=== PATIENT | male | born 1960 | race Caucasian/White ===

== ENCOUNTER 2024-11-10 15:06 | Emergency (ER) | payer OTHER, SELFPAY ==
--- OUTSIDE RECORDS SUMMARY | 2018-03-02 03:01 | XMS_ITS | Continuity of Care Document ---
Author Organization [facility] Address [address] [address] [place] [address] Phone Care Team Providers Care Sourcing Assistant Name Role Phone Unavailable Unavailable Unavailable Allergies, Adverse Reactions, Alerts Substance Reaction Status Criticality No Known Allergies Active No Inform ation Medications Medication Instructions Dosage Effective Dates (start - stop) Status Comments Zoloft 100 mg tablet take 1.5 Tablet by oral route every day 150 MG - Active ibuprofen 600 mg tablet take 1 tablet by oral route every day with food 600 MG - Active TYLENOL (unknown strength) take 1 tablet by oral route every 6 hours as needed Not Available - Active Nexium 40 mg capsule,delayed release take 1 capsule (40MG) by oral route 1 - 2 times every day 40 MG - Active MiralaxBisacodylMagCit Colon Prep Use as directed - No Longer Active Zoloft 50 mg tablet take 1 tablet (50MG) by ORAL route every day 50 MG - No Longer Active Procedures Procedure Date Colonoscopy Flex; W/bx 1/mx Level Iv-surg Path Gross/micro 19 Office Cons New/estab Mod Offic/outpt E&m Estab Low-mod 2 G8447 Colonoscopy Flex; W/contrl Ble 12 Colonoscopy Flex; W/bx 1/mx Level Iv-surg Path Gross/micro 12 Offic/outpt E&m New Mod-hi Routine Serum Collection G8447 Bld Ct; Hgb C-reactive Prot Advance Directives Directive Yes / No Effective Date File Name No Information Encounters Encounter Description Practice Location Reason(s) For Visit Diagnoses Date Provider Providers Copied on Encounter [facility], [address] [address], [place], [place], [id number], [place] tel:[phone] [facility] No Information 9 No Information Referring Provider: Betty Arthur MD, [address] [facility] [address], [place], [address] . tel:[phone] [facility], [address] [address], [place], [place], [address], [place] tel:[phone] [facility] Internal hemorrhoidsDia rrhea, unspecifiedMel enaOther hemorrhoids 9 Sandhya Hernández. [address] [facility], [address], [place], [place], [address], [place]. tel:[phone] Referring Provider: Referral Self, USE FOR SELF REFERRALS. Office Cons New/estab Mod [facility], [address] [address], [place], [place], [address], [place] tel:[phone] [facility] GI Symptoms or Concerns (chief complaint) Chronic diarrheaRectal bleeding 8 Jeyson Cain. [address] [facility], [place], [place], [address], [place]. tel:[phone] Referring Provider: [place], [address] [address] [place], [address]. tel:[phone] Offic/outpt E&m Estab Low-mod [facility], [address] [address], [place], [place], [address], [place] tel:[phone] [facility] Colonoscopy f/u (chief complaint) Rectal Bleed/BRBPR 2 Luis Waller. [address] [facility], [facility] [address], [place], [address], [place]. tel:[phone] Referring Provider: Referral Self, USE FOR SELF REFERRALS. [facility], [address] [address], [place], [place], [address], tel:[phone] [facility] AVM W/o BleedAVM W/bleedAnal FissureHemorrh oids NosAVM W/bleedDiarrhe aHemorrhoids NosAnal Fissure 2 Yoandy Handley. [address] [facility], [facility] [address], [place], [place], [address], [place]. tel:[phone] Referring Provider: Referral Self, USE FOR SELF REFERRALS. Offic/outpt E&m [facility], [address] [address], [place], [place], [address], tel:[phone] [facility] Diarrhea (chief complaint)Re ctal bleeding (chief complaint) DiarrheaRectal Bleed/BRBPR 2 Luis Waller. [address] [facility], [facility] [address], [place], [address], [place]. tel:[phone] Referring Provider: Referral Self, USE FOR SELF REFERRALS. Family History Family Member Type Diagnosis Age At Onset First degree family history Problem (finding) No history of Cancer, colon First degree family history Problem (finding) No history of Ulcerative Colitis First degree family history Problem (finding) cancer liver First degree family history Problem (finding) No Family history of No history of Colon Polyps First degree family history Problem (finding) No history of Crohn's Mother Problem (finding) Thyroid disorder First degree family history Problem (finding) Cholelithasis Immunizations Vaccine Date Status Comments Influenza, injectable, quadr ivalent, preservative free, 3 yrs or older administered Source : Other Provider Payers Payer name Insurance type Covered green party ID Authoriza tion(s) [employer] Of [facility] [id number] Social History Type Description Quantity Date Captured Comments Sex Male Smoking Status No Information Chief Complaint And Reason For Visit No Information Reason For Referral Reason For Referral No Information History Of Present Illness Encounter Date Complaint History Of Prese nt Illness GI Symptoms or Concerns I had th e pleasure of meeting Mr. Adam Fu, a 57-year-old gentleman, seen in consultation at the request of Dr. Consuelo Alcantara for bloody diarrhea.Adam has been dealing with bloody diarrhea for over 10 years. 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 It appears that he was referred to Colorectal Surgery and I have no notes from those encounters, but Mr. Fu says that nothing was done when he saw them. He also gives a vague history of being seen at the [facility] for his symptoms and he says that they could not figure out the problem.In the past, he had tests for C. diff which were normal, CRP, which was normal, tTG, which was normal, and stool culture which was normal.More recently in August 2017, his hemoglobin was 12.9 with an MCV of 81, normal PLT and WBC count, normal c Functional Status Date Functional Assessmen t No Information Instructions Date Instruction Additional Infor wade 1. Colonoscopy with views of the terminal ileum and random biopsies throughout the colon.2. Follow up with me in 1 month.Thank you so much for involving me in the care of Mr. Fu. Related to Chronic diarrhea Assessments Type Assessment Date No Information Patient Care Teams Name Effective Dates (start - stop) Status Members No Information
[2024-11-10] VITALS (24 sets, daily range): BP systolic 76–117; BP diastolic 56–80; PULSE 65–80; RESP 16–28; TEMP 36.1; O2SAT 91–100
--- NOTE | 2024-11-10 15:27 | ED.WOUNDLAC ---
HPI - Wound/Laceration General Chief Complaint: Laceration/Wound Stated Complaint: Cut L thumb with chainsaw Time Seen by Provider: 11/10/24 15:19 History of Present Illness HPI narrative: This 64-year-old male comes in with an injury to his left thumb. He was using a chain saw and cut the dorsal aspect of his thumb. He comes in with his some wrapped up and complaining of lots of pain. His speaks Luxembourgish and translates for him. His tetanus status is up-to-date. Related Data Home Medications ?Medication ?Instructions ?Recorded ?Confirmed gabapentin 300 mg capsule 300 mg PO 3XD 11/10/24 11/10/24 sertraline 100 mg tablet 200 mg PO DAILY 11/10/24 11/10/24 Allergies Allergy/AdvReac Type Severity Reaction Status Date / Time No Known Drug Allergies Allergy Verified 11/10/24 15:12 Review of Systems Status of ROS: Reports: 10 or more systems reviewed and unremarkable except as noted in History and below Narrative: Unable to obtain due to language barrier. Exam Narrative: Exam Narrative: Constitutional: Well-developed, well-nourished, no acute distress. HEENT: Normocephalic, atraumatic. Neck: Normal range of motion. Nontender. Supple. Heart: Intact distal pulses. Lungs: No chest discomfort. No wheezes, rhonchi, or rales. Abdomen: Nontender. Back: Normal range of motion. Extremities: Normal range of motion. Left thumb injury from a chainsaw. Skin: Intact. No rash. Warm. No erythema or pallor. Neurologic: No altered sensation. No weakness. Alert and oriented. Psychiatric: No suicidality. No anxiety or depression. No insomnia. Nursing notes and vitals signs are reviewed. Const: Vital Signs, click to edit/add: Vital Signs - 24 hr 11/10/24 15:15 11/10/24 15:17 11/10/24 15:18 Temperature 96.9 F L Pulse Rate 71 72 Pulse Rate [Pulse Oximeter] 80 Respiratory Rate 28 H Blood Pressure 91/63 Blood Pressure [Ri ght Upper Arm] 76/57 L Pulse Oximetry 97 95 95 Oxygen Delivery Me thod Room Air 11/10/24 15:23 11/10/24 15:27 11/10/24 15:30 Temperature Pulse Rate 69 79 70 Pulse Rate [Pulse Oximeter] Respiratory Rate Blood Pressure 110/72 90/64 Blood Pressure [Ri ght Upper Arm] Pulse Oximetry 99 100 96 Oxygen Delivery Me thod 11/10/24 15:32 11/10/24 15:33 11/10/24 15:37 Temperature Pulse Rate 69 70 74 Pulse Rate [Pulse Oximeter] Respiratory Rate Blood Pressure 85/56 L 109/80 Blood Pressure [Ri ght Upper Arm] Pulse Oximetry 97 95 Oxygen Delivery Me thod 11/10/24 15:38 11/10/24 15:42 11/10/24 15:45 Temperature Pulse Rate 70 65 67 Pulse Rate [Pulse Oximeter] Respiratory Rate Blood Pressure 108/78 Blood Pressure [Ri ght Upper Arm] Pulse Oximetry 91 95 94 Oxygen Delivery Me thod 11/10/24 15:47 11/10/24 15:52 11/10/24 15:53 Temperature Pulse Rate 69 67 69 Pulse Rate [Pulse Oximeter] Respiratory Rate 16 Blood Pressure 104/66 115/78 Blood Pressure [Ri ght Upper Arm] Pulse Oximetry 94 96 95 Oxygen Delivery Me thod 11/10/24 15:57 11/10/24 16:00 11/10/24 16:02 Temperature Pulse Rate 69 67 69 Pulse Rate [Pulse Oximeter] Respiratory Rate 16 Blood Pressure 115/77 109/79 Blood Pressure [Ri ght Upper Arm] Pulse Oximetry 94 93 94 Oxygen Delivery Me thod 11/10/24 16:07 11/10/24 16:12 11/10/24 16:15 Temperature Pulse Rate 69 68 Pulse Rate [Pulse Oximeter] Respiratory Rate Blood Pressure 109/76 117/80 Blood Pressure [Ri ght Upper Arm] Pulse Oximetry 92 94 Oxygen Delivery Me thod 11/10/24 16:17 11/10/24 16:22 11/10/24 16:26 Temperature Pulse Rate 66 67 67 Pulse Rate [Pulse Oximeter] Respiratory Rate Blood Pressure 108/69 104/79 112/76 Blood Pressure [Ri ght Upper Arm] Pulse Oximetry 93 93 93 Oxygen Delivery Me thod Course Vital Signs Vital signs: Initial Vital Signs Temperature 96.9 F L 11/10/24 15:15 Temperature Source Temporal Artery Scan 11/10/24 15:15 Pulse Rate 80 11/10/24 15:15 Respiratory Rate 28 H 11/10/24 15:15 Blood Pressure 76/57 L 11/10/24 15:15 Blood Pressure Mean 63 L 11/10/24 15:15 Pulse Oximetry 97 11/10/24 15:15 Oxygen Delivery Method Room Air 11/10/24 15:15 Vital Signs Temperature 96.9 F L 11/10/24 15:15 Pulse Rate 80 11/10/24 15:15 Respiratory Rate 28 H 11/10/24 15:15 Blood Pressure 76/57 L 11/10/24 15:15 Pulse Oximetry 97 11/10/24 15:15 Oxygen Delivery Method Room Air 11/10/24 15:15 Temperature 96.9 F L 11/10/24 15:15 Pulse Rate 67 11/10/24 16:26 Respiratory Rate 16 11/10/24 16:02 Blood Pressure 112/76 11/10/24 16:26 Pulse Oximetry 93 11/10/24 16:26 Oxygen Delivery Method Room Air 11/10/24 15:15 MDM - Wound/Laceration MDM Narrative Medical decision making narrative: This patient has an injury to his left thumb and his states that he does not handle pain very well. The thumb is wrapped up so I was able to administer a digital block using bupivacaine and subsequently remove the bandage to further evaluate the wound. This brought great relief of his pain. The bandage was removed to show a wound that does cut through part of the nail. I did obtain an x-ray of his left thumb and this shows no sign of foreign object or bony injury. The wound was then cleansed and I did approximate the wound edges with 3 sutures placed in interrupted fashion. This was done with 4.0 Ethilon suture. The wound then had some ointment placed and was bandaged. I did give instructions regarding wound care and the need to return for suture removal in 7-10 days. Imaging Data XR L Thumb: Radiologist's impression: No acute displaced fracture or malalignment. No unexpected radiopaque foreign body. Discharge Plan Discharge Clinical Impression: Laceration Patient Disposition: Home, Self-Care Condition: Improved Additional Instructions: Keep wound clean and dry. Use bandages as needed. Return to clinic or urgent care in 7-10 days for suture removal. Use Toradol as needed and directed for pain relief. Prescriptions: No Action sertraline 100 mg tablet 200 mg PO DAILY gabapentin 300 mg capsule 300 mg PO 3XD Follow Up/Referrals: Provider,Not a Local [Primary Care Provider, Family Practice] Stand Alone Forms: MyHealth Info Instructions
--- OUTSIDE RECORDS SUMMARY | 2024-11-10 15:45 | XMS_ITS | Encounter Summary ---
Author Organization [facility] Address [address] [place] [address] Care Team Providers Care Actuarial Internship Name Role Phone Ralf Wheeler PA-C Primary Care Provider [phone] Ralf Wheeler PA-C Primary Care Provider [phone] Ralf WheelerC Unavailable [phone] Ralf Wheeler PA-C Unavailable [phone] Radha Talavera PA-C Unavailable [phone] Franci Campbell NP Unavailable [phone] Jose Luis Jarvis MD Unavailable [phone] Silke Rich MD Unavailable Encounter Details Date Type Department Care Team (Late st Contact Info) Description 02/12/2022 MyC Medical Advice [address] [address] Emily Huang Social History Tobacco Use Types Packs/Day Years Used Date Smoking Tobacco: Former Cigarettes Q uit: 02/17/1988 Smokeless Tobacco: Never Alcohol Use Standard Drinks/Week Comments No 0 (1 standard drink = 0.6 oz pur e alcohol) quit 1998 PHQ-2 Answer Date Recorded PHQ-2 Score 2 06/19/2021 Sex and Gender Information Value Date Recorded Sex Assigned at Male 06/16/2022 11:23 AM CDT 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 Gender Identity Male 06/16/2022 11:23 AM CDT Sexual Orientation Not on file 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 file Not on file documented as of this encounter Plan of Treatment Not on file documented as of this encounter Visit Diagnoses Not on filedocumented in this encounter Additional Health Concerns Assessment Noted Time PHQ-9 Depression Total Score: 18 022 3:10 PM CDT documented as of this encounter Care Teams Actuarial Internship Relationship Specialty Start Date End Date Ralf Wheeler PA-C [address] [address] PCP - General Family Medicine 07/12/21 02/22/23 Ralf Wheeler PA-C [address] [place] [address] PCP - General Family Medicine 02/23/23 Ralf Wheeler PA-C [address] [place] [address] Family Medicine 02/23/23 03/11/23 Ralf Wheeler [place] [address] [place] [address] Assigned PCP 07/12/20 10/07/24 Radha Talavera PA-C [address] [place] [address] Physician Cashier Credit Dermatology 11/28/20 03/11/23 Franci Campbell TEST ENGINEER NUCLEAR EQUIPMENT [address] [place] [address] [place] [address] Assigned Neuroscience Provider 07/13/21 01/02/23 Jose Luis Jarvis MD [address] [address] Dermatology 03/12/23 [place] [address] [address] [address] Assigned PCP 10/08/24 documented as of this encounter
--- OUTSIDE RECORDS SUMMARY | 2024-11-10 15:45 | XMS_ITS | Encounter Summary ---
Author Organization [facility] Address [address] [place] [address]. [place] [address] Care Team Providers Care Brilliandeer Lopper Name Role Phone Ralf Wheeler PA-C Primary Care Provider [phone] Ralf Wheeler PA-C Primary Care Provider [phone] Ralf Wheeler PA-C Unavailable [phone] Ralf Wheeler PA-C Unavailable [phone] Radha Talavera PA-C Unavailable [phone] Jose Luis Jarvis MD Unavailable [phone] Silke Rich MD Unavailable Reason for Visit * Reason Comments Medication Refill Encounter Details Date Type Department Care Team (Late st Contact Info) Description [facility] [address] [place] [address] Ralf Wheeler PA-C [address] [place] [address] Medication Refill Social History Tobacco Use Types Packs/Day Years Used Date Smoking Tobacco: Former Cigarettes Q uit: 02/17/1988 Smokeless Tobacco: Never Alcohol Use Standard Drinks/Week Comments No 0 (1 standard drink = 0.6 oz pur e alcohol) quit 1998 PHQ-2 Answer Date Recorded PHQ-2 Score 2 06/18/2022 Adolescent Education Answer Date Record ed Getting School Help Needed Not on file 11/15 Sex and Gender Information Value Date Recorded Sex Assigned at Male 06/16/2022 11:23 AM CDT 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 ROAD COMMISSIONER documented in this encounter Plan of Treatment Not on file documented as of this encounter Visit Diagnoses Diagnosis Gastroesophageal reflux disease, unspecified whether esophagitis present documented in this encounter Additional Health Concerns Assessment Noted Time PHQ-9 Depression Total Score: 6 06/19/19 23 2:26 PM CDT documented as of this encounter Care Teams Brilliandeer Lopper Relationship Specialty Start Date End Date Ralf Wheeler PA-C [address] [address] [address] PCP - General Family Medicine 07/12/21 02/22/23 Ralf Wheeler PA-C [address] [address] [address] PCP - General Family Medicine 02/23/23 Ralf Wheeler PA-C [address] [address] [address] Family Medicine 02/23/23 03/11/23 Ralf Wheeler PA-C [address] [address] [address] Assigned PCP 07/12/20 10/07/24 Radha Talavera PA-C [address] [place] [address] Physician Scroll Machine Operator Dermatology 11/28/20 03/11/23 Jose Luis Jarvis MD [address] [place] [address] Dermatology 03/12/23 [place] [address] [facility] [place] [address] Assigned PCP 10/08/24 documented as of this encounter
--- OUTSIDE RECORDS SUMMARY | 2024-11-10 15:45 | XMS_ITS | Encounter Summary ---
Author Organization [facility] Address [address] [place] [address]. [place] [address] Care Team Providers Care Relations Specialist Name Role Phone Ralf Wheeler PA-C Primary Care Provider [phone] Ralf Wheeler PA-C Primary Care Provider [phone] Ralf Wheeler PA-C Unavailable [phone] Ralf Wheeler-C Unavailable [phone] Radha Talavera-C Unavailable [phone] Franci Campbell NP Unavailable [phone] Jose Luis Jarvis MD Unavailable [phone] Silke Rich MD Unavailable Encounter Details Date Type Department Care Team (Late st Contact Info) Description 07/16/2021 MyC Medical Advice [facility] [address] [place] [address] Ralf Wheeler PA-C [id number] [place] [address] Social History Tobacco Use Types Packs/Day Years [...] AM CDT 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 No / Unsure 07/12/2021 8:23 AM CDT documented as of this encounter Miscellaneous Notes * Telephone Encounter - Gina Mcgarry RN - 07/16/2021 3:09 PM CDT Results? Gina Landry RN documented in this encounter Plan of Treatment Not on file documented as of this encounter Visit Diagnoses Not on filedocumented in this encounter Additional Health Concerns Assessment Noted Time PHQ-9 Depression Total Score: 18 022 3:10 PM CDT documented as of this encounter Care Teams Relations Specialist Relationship Specialty Start Date End Date Ralf Wheeler PA-C [address] [address] [address] PCP - General Family Medicine 07/12/21 02/22/23 Ralf Wheeler PA-C [address] [address] [address] PCP - General Family Medicine 02/23/23 Ralf Wheeler PA-C [address] [address] [address] Family Medicine 02/23/23 03/11/23 Ralf Wheeler PA-C [address] [address] [address] Assigned PCP 07/12/20 10/07/24 Radha Talavera PA-C [address] [place] [address] Physician Academic Vice President Dermatology 11/28/20 03/11/23 Franci Campbell NP [address] [address] Assigned Neuroscience Provider 07/13/21 01/02/23 Jose Luis Jarvis MD [address] [address] Dermatology 03/12/23 [place] [address] [place] [address] Assigned PCP 10/08/24 documented as of this encounter
--- OUTSIDE RECORDS SUMMARY | 2024-11-10 15:45 | XMS_ITS | Encounter Summary ---
Author Organization [facility] Address [address] [place] [address] Care Team Providers Care Absorption Operator Name Role Phone Ralf Wheeler PA-C Primary Care Provider [phone] Ralf Wheeler PA-C Primary Care Provider [phone] Rlaf Wheeler PA-C Unavailable [phone] Ralf Wheeler PA-C Unavailable [phone] Radha Talavera PA-C Unavailable [phone] Franci Campbell NP Unavailable [phone] Jose Luis Jarvis MD Unavailable [phone] Silke Rich MD Unavailable Encounter Details Date Type Department Care Team (Late st Contact Info) Description 07/18/2021 MyC Medical Advice [address] [address] Lorelei Bo Social History Tobacco Use Types Packs/Day Years [...] AM CDT 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 Gender Identity Male 06/16/2022 11:23 AM CDT [...] AM CDT documented as of this encounter Plan of Treatment Not on file documented as of this encounter Visit Diagnoses Not on filedocumented in this encounter Additional Health Concerns Assessment Noted Time PHQ-9 Depression Total Score: 18 022 3:10 PM CDT documented as of this encounter Care Teams Absorption Operator Relationship Specialty Start Date End Date Ralf Wheeler PA-C [address] [address] [address] PCP - General Family Medicine 07/12/21 02/22/23 Ralf Wheeler PA-C [address] [address] [address] PCP - General Family Medicine 02/23/23 Ralf Wheeler PA-C [address] [address] [address] Family Medicine 02/23/23 03/11/23 Ralf Wheeler PA-C [address] [address] [address] Assigned PCP 07/12/20 10/07/24 Radha Talavera PA-C [address] [place], [place] [address] Physician Deck Engine Operator Dermatology 11/28/20 03/11/23 Franci Campbell NP [address] [place] [address] Assigned Neuroscience Provider 07/13/21 01/02/23 Jose Luis Jarvis MD [address] [place] [address] Dermatology 03/12/23 [place] [address] [place] [address] Assigned PCP 10/08/24 documented as of this encounter
--- OUTSIDE RECORDS SUMMARY | 2024-11-10 15:45 | XMS_ITS | Clinical Summary ---
Author Organization [facility] Address [address] [facility] , [address] [place] [address] Phone Care Team Providers Care Embossing Machine Tender Name Role Phone Usama DOBBS, BSN, Mer Unavailable [phone] Conditions or Problems Problem Name Problem Code Onset Date Status Entry Date Provider Comment Standard Description Annotate Headache, unspecified [id number] (SNOMED CT) Active See Rodriguez MD Headache Medications Medication Instructions Start Date Stop Date Generic Name NDC Provider SERTRALINE HCL 100 MG TABS sertraline [id number] See Rodriguez MD Medications Administered No information available. Allergies, Adverse Reactions, Alerts Allergy Name Reaction Description Start Date Severity Statu s Provider NKDA Mild Active See Rodriguez MD Results Date Name Value Unit Range Flag Description Office Visit: Office Visit L eft eye pn, visual disturbance No prev scans P SMOK STATUS former smoker Tobacco smoking status MEDS REVIEW Done Documenta tion of current medications (procedure) Replaced Document: (P) SED R ATE BY MODIFIED WESTERGREN, C-REACTIVE PROTEIN CRP * mg/dL C reactive pr otein [Mass/volume] in Serum or Plasma ESR 11 mm/h < OR = 20 N Erythrocyte sedimentation rate by Westergren method Internal Other: Authorizatio n - OBS [email or web address] Yes Authoriza tion: Release of Information - Authorize [facility] - Payment and Healthcare Operations ROIAUTHOTHER Yes Authoriz ation: Release of Information - Authorize Others/Insurance - Payment and Healthcare Operations HIECONSENT Yes Consent To Release information to the Health Information Exchange (HIE) [email or web address] Yes Authorizat ion: Authorization for [facility]I to leave messages, voicemail, send text messages, send emails AUTHRELHCARE Yes Authoriz ation: Release/Retrieval of Information to/from Healthcare Facilities, Pharmacy Benefit Payers and Providers AUTHPRIVPRAC Yes Authoriz ation: Notice of privacy practices AUTHBENEFIT Yes Authoriza tion: Assignment of Benefits and Payment Agreement Plan of Care Type Date Detail Pending order MRI-Brain W/O Pending order Patient Instruct ions Pending order C Reactive Prote in (CRP) Qn Pending order ESR (Sedimentati on Rate) Pending order Patient Instruct ions Pending order Follow up JEANIE Pending order Follow up JEANIE Procedures Code Procedure Name Date Entry Date [id number] MRI-Brain W/O CPT-08830 MRI Brain W/O [facility]-[id number] Documentation of current medicatio ns ORDERS C Reactive Protein (CRP) Qn ORDERS ESR (Sedimentation Rate) 202 05/22/12 Vital Signs No information available. Immunizations No information available. Advance Directives No information available.
--- OUTSIDE RECORDS SUMMARY | 2024-11-10 15:46 | XMS_ITS | Encounter Summary ---
Author Organization [facility] Address [address] [place] [address] Care Team Providers Care Investment Associate Name Role Phone Consuelo Alcantara MD Primary Care Provider Unavailab Ralf Harry PA-C Primary Care Provider [phone] Ralf Wheeler PA-C Primary Care Provider [phone] Ralf Wheeler PA-C Unavailable [phone] Ralf Wheeler PA-C Unavailable [phone] Radha Talavera PA-C Unavailable [phone] Franci Campbell NP Unavailable [phone] Jose Luis Jarvis MD Unavailable [phone] Silke Rich MD Unavailable Encounter Details Date Type Department Care Team (Late st Contact Info) Description 05/29/[address] [address] Consuelo Alcantara MD Social History Tobacco Use Types Packs/Day Years Used Date Smoking Tobacco: Former Cigarettes Q uit: 02/17/1988 Smokeless Tobacco: Never Alcohol Use Standard Drinks/Week Comments No 0 (1 standard drink = 0.6 oz pur e alcohol) quit 1998 PHQ-2 Answer Date Recorded PHQ-2 Score 2 05/29/2021 Sex and Gender Information Value Date Recorded Sex Assigned at Male 06/16/2022 11:23 AM CDT 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 No / Unsure 05/29/2021 9:03 AM CDT documented as of this encounter Plan of Treatment Not on file documented as of this encounter Visit Diagnoses Not on filedocumented in this encounter Additional Health Concerns Assessment Noted Time PHQ-9 Depression Total Score: 18 022 3:10 PM CDT documented as of this encounter Care Teams Investment Associate Relationship Specialty Start Date End Date Consuelo Alcantara MD PCP - General Family Practice 02/11/13 07/09/21 Ralf Wheeler PA-C [address] [place] [address] PCP - General Family Medicine 07/12/21 02/22/23 Ralf Wheeler [place] [address] [place] [address] PCP - General Family Medicine 02/23/23 Ralf Wheeler [place] [address] [place] [address] Family Medicine 02/23/23 03/11/23 Ralf Wheeler [place] [address] [place] [address] Assigned PCP 07/12/20 10/07/24 Radha Talavera PA-C [address] [place] [address] Physician Resistance Welding Machine Operator Dermatology 11/28/20 03/11/23 Franci Campbell NP [address] [place] [address] Assigned Neuroscience Provider 07/13/21 01/02/23 Jose Luis Jarvis MD [address] [place] [address] Dermatology 03/12/23 [place] [address] [address] [address] Assigned PCP 10/08/24 documented as of this encounter
--- OUTSIDE RECORDS SUMMARY | 2024-11-10 15:46 | XMS_ITS | Encounter Summary ---
Author Organization [facility] Address [address] [place] [address] Care Team Providers Care Lab Tester Name Role Phone Ralf Wheeler PA-C Primary Care Provider [phone] Ralf Wheeler PA-C Primary Care Provider +- [phone] Ralf Wheeler-C Unavailable [phone] Ralf Wheeler PA-C Unavailable [phone] Radha Talavera PA-C Unavailable [phone] Franci Campbell NP Unavailable [phone] Jose Luis Jarvis MD Unavailable + [phone] Silke Rich MD Unavailable Encounter Details Date Type Department Care Team (Late st Contact Info) Description 03/18/2022 My[facility] Medical Advice [address] [address] Emily Huang Social History Tobacco [...] AM CDT 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 Gender Identity Male 06/16/2022 11:23 AM CDT [...] documented as of this encounter Care Teams Lab Tester Relationship Specialty Start Date End Date Ralf Wheeler PA-C [address] [address] [address] PCP - General Family Medicine 07/12/21 02/22/23 Ralf [place] [address] [place] [address] PCP - General Family Medicine 02/23/23 Ralf [place] [address] [place] [address] Family Medicine 02/23/23 03/11/23 Ralf Wheeler [place] [address] [place] [address] Assigned PCP 07/12/20 10/07/24 Radha Talavera PA-C [address] [place] [address] Physician Dry Kiln Loader Dermatology 11/28/20 03/11/23 Franci Campbell BUS TROLLEY AND TAXI INSTRUCTOR [address] [place] [address] [place] [address] Assigned Neuroscience Provider 07/13/21 01/02/23 Jose Luis Jarvis MD [address] [address] Dermatology 03/12/23 [place] [address] [address] [address] Assigned PCP 10/08/24 documented as of this encounter
--- OUTSIDE RECORDS SUMMARY | 2024-11-10 15:46 | XMS_ITS | Encounter Summary ---
Author Organization [facility] Address [address] [place] [address] Care Team Providers Care Hydrogen Braze Furnace Operator Name Role Phone Consuelo Alcantara MD Primary Care Provider Unavailab le Ralf Wheeler PA-C Primary Care Provider [phone] Ralf Wheeler PA-C Primary Care Provider +[phone]- Ralf Wheeler PA-C Unavailable [phone] Ralf Wheeler PA-C Unavailable [phone] Consuelo Alcantara MD Unavailable Unavailable Ralf Wheeler PA-C Unavailable [phone] Radha Talavera PA-C Unavailable [phone] Franci Campbell NP Unavailable [phone] Jose Luis Jarvis MD Unavailable [phone] Silke Rich MD Unavailable Encounter Details Date Type Department Care Team (Late st Contact Info) Description 06/27/2019 [facility] Medical Advice [address] [address] Emily Danielle Social History Tobacco Use Types Packs/Day Years Used Date Smoking Tobacco: Former Cigarettes Q uit: 02/17/1988 Smokeless Tobacco: Never Alcohol Use Standard Drinks/Week Comments No 0 (1 standard drink = 0.6 oz pur e alcohol) quit 1998 PHQ-2 Answer Date Recorded PHQ-2 Score 2 12/06/2018 Sex and Gender Information Value Date Recorded Sex Assigned at Male 06/16/2022 11:23 AM CDT 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 Gender Identity Male 06/16/2022 11:23 AM CDT [...] Assessment Noted Time PHQ-9 Depression Total Score: 4 12/07/19 19 4:24 PM CDT documented as of this encounter Care Teams Hydrogen Braze Furnace Operator Relationship Specialty Start Date End Date Consuelo Alcantara MD PCP - General Family Practice 02/11/13 07/09/21 Ralf Wheeler PA-C [address] [address] [address] PCP - General Family Medicine 07/12/21 02/22/23 Ralf Wheeler PA-C [address] [address] [place] [address] PCP - General Family Medicine 02/23/23 Ralf Wheeler PA-C [address] [address] [place] [address] Family Medicine 02/23/23 03/11/23 Ralf Wheeler PA-C [address] [address] [place] [address] Assigned PCP 10/03/18 03/24/20 Consuelo Alcantara MD Assigned PCP 03/25/20 07/11/20 Ralf Wheeler PA-C [address] [address] [place] [address] Assigned PCP 07/12/20 10/07/24 Radha Talavera PA-C [address] [place] [address] Physician Library Helper Dermatology 11/28/20 03/11/23 Franci Campbell NP [address] [address] Assigned Neuroscience Provider 07/13/21 01/02/23 Jose Luis Jarvis MD [address] [place] [address] Dermatology 03/12/23 [place] [address] [place] [address] Assigned PCP 10/08/24 documented as of this encounter
--- OUTSIDE RECORDS SUMMARY | 2024-11-10 15:46 | XMS_ITS | Encounter Summary ---
Author Organization [facility] Address [address] [place] [address] Care Team Providers Care Hot Strip Mill Inspector Name Role Phone Consuelo Alcantara MD Primary Care Provider Unavailab Ralf Harry PA-C Primary Care Provider [phone] Ralf Wheeler PA-C Primary Care Provider [phone] Ralf Wheeler PA-C Unavailable [phone] Ralf Wheeler PA-C Unavailable [phone] Radha Talavera PA-C Unavailable [phone] Franci Campbell NP Unavailable Jose Luis Jarvis MD Unavailable [phone] Silke Rich MD Unavailable Encounter Details Date Type Department Care Team (Late st Contact Info) Description 04/01/[address] [facility] [address] [place] [address] Radha Kilgore Social History Tobacco Use Types Packs/Day Years Used Date Smoking Tobacco: Former Cigarettes Q uit: 02/17/1988 Smokeless Tobacco: Never Alcohol Use Standard Drinks/Week Comments No 0 (1 standard drink = 0.6 oz pur e alcohol) quit 1998 PHQ-2 Answer Date Recorded PHQ-2 Score 1 07/03/2020 Sex and Gender Information Value Date Recorded Sex Assigned at Male 06/16/2022 11:23 AM CDT Legal Sex Male 5:10 AM RN GYN Gender Identity Male 06/16/2022 11:23 AM CDT [...] Assessment Noted Time PHQ-9 Depression Total Score: 1 07/04/19 7:14 AM CDT documented as of this encounter Care Teams Hot Strip Mill Inspector Relationship Specialty Start Date End Date Consuelo Alcantara MD PCP - General Family Practice 02/11/13 07/09/21 Ralf Wheeler PA-C [address] [place] [address] PCP - General Family Medicine 07/12/21 02/22/23 Ralf Wheeler PA-C [address] [place] [address] PCP - General Family Medicine 02/23/23 Ralf Wheeler [place] [address] [place] [address] Family Medicine 02/23/23 03/11/23 Ralf Wheeler PA-C [address] [place] [address] Assigned PCP 07/12/20 10/07/24 Radha Talavera PA-C [address] [place] [address] Physician Utility Mechanic Supervisor Dermatology 11/28/20 03/11/23 Franci Campbell NP [address] [place] [address] Assigned Neuroscience Provider 07/13/21 01/02/23 Jose Luis Jarvis MD [address] [place] [facility] [place] [address] Dermatology 03/12/23 [place] [address] [address] [address] Assigned PCP 10/08/24 documented as of this encounter
--- OUTSIDE RECORDS SUMMARY | 2024-11-10 15:46 | XMS_ITS | Encounter Summary ---
Author Organization [facility] Address [address] [place] [address] Care Team Providers Care Material Disposition Inspector Name Role Phone Ralf Wheeler PA-C Primary Care Provider [phone]- [phone] Ralf Wheeler PA-C Unavailable [phone] Jose Luis Jarvis MD Unavailable + [phone] Silke Rich MD Unavailable Encounter Details Date Type Department Care Team (Late st Contact Info) Description 05/29/2023 MyC Medical Advice [address] [address] Latasha Dockery Social History Tobacco Use Types Packs/Day Years Used Date Smoking Tobacco: Former Cigarettes Q uit: 02/17/1988 Smokeless Tobacco: Never Alcohol Use Standard Drinks/Week Comments No 0 (1 standard drink = 0.6 oz pur e alcohol) quit 1998 PHQ-2 Answer Date Recorded PHQ-2 Score 4 03/10/2023 Adolescent Education Answer Date Record ed Getting School Help Needed Not on file 11/15 Food Insecurity Answer Date Recorded Within the past 12 months, d id you worry that your food would run out before you got money to buy more? No 03/10/2023 Within the past 12 months, d id the food you bought just not last and you didn t have money to get more? No 03/10/2023 Housing Stability Answer Date Recorded Do you have housing? (Housin g is defined as stable permanent housing and does not include staying outside in a car, in a tent, in an abandoned building, in an overnight intermediate, or couch-surfing.) Yes 03/10/2023 Are you worried about losing your housing? No 03/10/2023 Financial Resource Strain Answer Date R ecorded Within the past 12 months, h ave you or your family members you live with been unable to get utilities (heat, electricity) when it was really needed? No 03/10/2023 Transportation Needs Answer Date Record ed Within the past 12 months, h as lack of transportation kept you from medical appointments, getting your medicines, non-medical meetings or appointments, work, or from getting things that you need? 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 STEEL ESTIMATOR Gender Identity Male 06/16/2022 11:23 AM CDT [...] Assessment Noted Time PHQ-9 Depression Total Score: 12 024 7:05 AM STEEL ESTIMATOR documented as of this encounter Care Teams Material Disposition Inspector Relationship Specialty Start Date End Date Ralf Wheeler PA-C [address] [address] [address] PCP - General Family Medicine 02/23/23 Ralf Wheeler PA-C [address] [address] [place] [address] Assigned PCP 07/12/20 10/07/24 Jose Luis aJrvis MD [address] [place] [address] Dermatology 03/12/23 [place] [address] [address] [address] Assigned PCP 10/08/24 documented as of this encounter
--- OUTSIDE RECORDS SUMMARY | 2024-11-10 15:46 | XMS_ITS | Encounter Summary ---
Author Organization [facility] Address [address] [place] [address] Care Team Providers Care Molding Press Operator Name Role Phone Consuelo Alcantara MD Primary Care Provider Unavailab le Ralf Wheeler PA-C Primary Care Provider [phone] Ralf Wheeler PA-C Primary Care Provider [phone]- [phone] Ralf Wheeler PA-C Unavailable [phone] Consuelo Alcantara MD Unavailable Unavailable Consuelo Alcantara MD Unavailable Unavailable Ralf Wheeler PA-C Unavailable [phone] Consuelo Alcantara MD Unavailable Unavailable Ralf Wheeler PA-C Unavailable [phone] Radha Talavera-C Unavailable Franci Campbell NP Unavailable [phone] Jose Luis Jarvis MD Unavailable Silke Rich MD Unavailable Reason for Visit * Reason Comments Medication Refill sertraline (ZOLOFT) 100 MG tablet Encounter Details Date Type Department Care Team (Late st Contact Info) Description 04/12/2017 [facility] [address] [place] [address] Consuelo Alcantara MD Medication Refill (sertraline (ZOLOFT) 100 MG tablet) Social History Tobacco Use Types Packs/Day Years Used Date Smoking Tobacco: Former Cigarettes Q uit: 02/17/1988 Smokeless Tobacco: Never Alcohol Use Standard Drinks/Week Comments No 0 (1 standard drink = 0.6 oz pur e alcohol) quit 1998 Sex and Gender Information Value Date Recorded Sex Assigned at Male 06/16/2022 11:23 AM CDT 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 KMOBILE OPERATOR * Telephone Encounter - Melina Philip - 04/14/2017 4:27 PM CST Called and talked to pt, PHQ and WENDY scores are updated. Melina Philip CMA ([facility]) KMOBILE OPERATOR * Telephone Encounter - Serena Polk RN - 04/14/2017 3:15 PM CST sertraline (ZOLOFT) 100 MG tablet PHQ-9 SCORE 05/31/2015 02/06/2016 09/26/2016 Total Score - - - Total Score 5 5 3 Medication is being filled for 1 time refill only due to: due for PHQ-9/WENDY-7 Per JAYNA 09/26/2016, If doing well, can do PHQ 9 and WENDY 7 over phone or online without visit. Please route questionnaire scores to provider to review and advise if OV would be recommended. Please assist with questionnaires. Serena Polk RN, BSN KMOBILE OPERATOR * Telephone Encounter - Santi Cotto - 04/12/2017 1:41 PM CST Requested Prescriptions Pending Prescriptions Disp Refills ??? sertraline (ZOLOFT) 100 MG tablet [Pharmacy Med Name: SERTRALINE HCL 100 MG TABLET] Last Written Prescription Date: 09/26/2016 Last Fill Quantity: 135 tablet, # refills: 1 Last office visit: 09/26/2016 with prescribing provider: Consuelo Alcantara MD Future Office Visit: 135 tablet 1 Sig: TAKE 1.5 TABLETS (150 MG) BY MOUTH DAILY SSRIs Protocol Failed 04/12/2017 11:43 AM Failed - PHQ-9 score less than 5 in past 6 months The PHQ-9 criteria is meant to fail. It requires a PHQ-9 score review PHQ-9 SCORE 05/31/2015 02/06/2016 09/26/2016 Total Score - - - Total Score 5 5 3 WENDY-7 SCORE 01/24/2015 05/31/2015 09/26/2016 Total Score - - - Total Score 9 9 7 Failed - Recent (6 mo) or future visit with authorizing provider's specialty Patient had office visit in the last 6 months or has a visit in the next 30 days with authorizing provider. See Patient Info tab in inbasket, or Choose Columns in Meds & Orders section of therefill encounter. Passed - Patient is age 18 or older KMOBILE OPERATOR documented in this encounter Plan of Treatment Not on file documented as of this encounter Visit Diagnoses Diagnosis Major depressive disorder, single episode in full remission Anxiety Anxiety state, unspecified documented in this encounter Additional Health Concerns Assessment Noted Time PHQ-9 Depression Total Score: 3 04/15/19 18 8:11 AM TRACKMOBILE OPERATOR documented as of this encounter Care Teams Molding Press Operator Relationship Specialty Start Date End Date Consuelo Alcantara MD PCP - General Family Practice 02/11/13 07/09/21 Ralf Wheeler PA-C [address] [place] [address] PCP - General Family Medicine 07/12/21 02/22/23 Ralf Wheeler PA-C [address] [address] [place], [place] [address] PCP - General Family Medicine 02/23/23 Consuelo Alcantara MD PCP - Assigned PCP 04/29/12 04/20/18 Ralf Wheeler PA-C [address] [place] [address] Family Medicine 02/23/23 03/11/23 Consuelo Alcantara MD Assigned PCP 04/29/12 10/02/18 Ralf Wheeler PA-C [address] [address] [place], [place] [address] Assigned PCP 10/03/18 03/24/20 Consuelo Alcantara MD Assigned PCP 03/25/20 07/11/20 Ralf Wheeler PA-C [address] [place] [address] Assigned PCP 07/12/20 10/07/24 Radha Talavera PA-C [address] [place] [address] Physician Optical Engineering Technician Dermatology 11/28/20 03/11/23 Franci Campbell NP [address] [place] [address] Assigned Neuroscience Provider 07/13/21 01/02/23 Jose Luis Jarvis MD [address] [place] [address] Dermatology 03/12/23 [place] [address] [address] [place] [address] Assigned PCP 10/08/24 documented as of this encounter
--- OUTSIDE RECORDS SUMMARY | 2024-11-10 15:46 | XMS_ITS | Encounter Summary ---
Author Organization [facility] Address [address] [place] [address]. [place] [address] Care Team Providers Care Junior Technical Writer Name Role Phone Ralf Wheeler PA-C Primary Care Provider [phone] Ralf Wheeler PA-C Primary Care Provider +[phone] Ralf Wheeler PA-C Unavailable [phone] Ralf Wheeler-C Unavailable [phone] Radha Talavera-C Unavailable [phone] Franci Campbell NP Unavailable [phone] Jose Luis Jarvis MD Unavailable [phone] Silke Rich MD Unavailable Encounter Details Date Type Department Care Team (Late st Contact Info) Description 07/10/[address] [facility] [address] [place] [address] Ralf Wheeler PA-C [id number] [place] [address] Social History Tobacco Use Types Packs/Day [...] AM CDT Legal Sex Male 5:10 AM HEALTH RECORDS TECHNOLOGY TEACHER Gender Identity Male 06/16/2022 11:23 AM CDT [...] documented as of this encounter Care Teams Junior Technical Writer Relationship Specialty Start Date End Date Ralf Wheeler [place]-C [address] [place] [address] PCP - General Family Medicine 07/12/21 02/22/23 Ralf [place] [address] [place] [address] PCP - General Family Medicine 02/23/23 Ralf Wheeler [place]-C [address] [place] [address] Family Medicine 02/23/23 03/11/23 Ralf Wheeler [place] [address] [place] [address] Assigned PCP 07/12/20 10/07/24 Radha Talavera PA-C [address] [place] [address] Physician Bender Machine Dermatology 11/28/20 03/11/23 Franci Campbell NP [address] [place] [address] Assigned Neuroscience Provider 07/13/21 01/02/23 Jose Luis Jarvis MD [address] [place] [address] Dermatology 03/12/23 [place] [address] [address] [address] Assigned PCP 10/08/24 documented as of this encounter
--- OUTSIDE RECORDS SUMMARY | 2024-11-10 15:46 | XMS_ITS | Clinical Summary ---
Author Organization [facility] Address [address] [place] [address] Care Team Providers Care X Ray Developing Machine Operator Name Role Phone Ralf Wheeler PA-C Primary Care Provider [phone] Jose Luis Jarvis MD Unavailable + [phone] Silke Rich MD Unavailable Allergies No known active allergies Medications vitamin D3 (CHOLECALCIFEROL ) 2000 units (50 mcg) tabletIndication s:Vitamin D deficiency TAKE 1 TABLET BY MOUTH EVERY DAY 90 tablet 3 0 Active ibuprofen (ADVIL/MOTRIN) 200 MG capsuleIndicatio ns:Arthralgia, unspecified joint,Myalgia Take 2-3 capsules (400-600 mg) by mouth every 6 hours as needed for moderate pain 90 capsule 2 Active gabapentin (NEURONTIN) 300 MG capsuleIndicatio ns:Numbness and tingling of right arm Take 1 capsule (300 mg) by mouth 3 times daily 90 capsule 3 4 Active valACYclovir (VALTREX) 1000 mg tablet Take 1 tablet (1,000 mg) by mouth 3 times daily for 7 days 21 tablet 4 Active sertraline (ZOLOFT) 100 MG tabletIndication s:Major depressive disorder, single episode in full remission,Anxiet y TAKE 2 TABLETS BY MOUTH EVERY DAY 180 tablet 5 Active esomeprazole (NEXIUM) [address] capsuleIndicatio ns:Gastroesophag eal reflux disease, unspecified whether esophagitis present TAKE 1 CAPSULE BY MOUTH 30-60 MINUTES BEFORE EATING. 90 capsule 5 Active Active Problems Problem Noted Date Diagnosed Date Elevated blood pressure 01/09/2015 Overview (01/09/2015): stress related; OK today; no BP meds; stress relief recommended; exercise, prayer, etc. Absolute anemia 08/04/2014 Major depressive disorder, single episode in ful l remission 06/30/2013 CARDIOVASCULAR SCREENING; LDL GOAL LESS THAN 160 05/21/2012 Overview (05/21/2012): [facility] 10-year CHD Risk Score: 5% (9 Total Points) Values used to calculate score: Age: 52 years -- Points: 6 Total Cholesterol: 216 mg/dL -- Points: 3 HDL Cholesterol: 56 mg/dL -- Points: 0 Systolic BP (untreated): 108 mmHg -- Points: 0 The patient is not a smoker. -- Points: 0 The patient has not been diagnosed with diabetes. -- Points: 0 The patient does not have a family history of CHD. -- Points:0 Anxiety 05/20/2012 Vitamin D deficiency 05/20/2012 GERD (gastroesophageal reflux disease) Overview (06/27/2015): Reviewed [facility] records; did have him on 40 mg bid. They did attempt to decrease; but he notes it did not work. Resolved Problems Problem Noted Date Diagnosed Date Resolved Date Major depression in partial remission 02/05/2013 06/30/2013 Major depression in partial remission 05/20/2012 08/24/2012 Immunizations Immunization Administration Dates Next Due COVID-19 MONOVALENT 12+ (Pfizer) 06/16/2020,04/0 10/2020 Flu, Unspecified 10/20/2018,12/17/2017 Influenza (IIV3) PF 11/16/2013,10/22/2012,2011 Influenza Vaccine >6 months,quad, PF 10/2022,10/19/2019,10/20/2018,2013 Influenza Vaccine, 6+MO IM (QUADRIVALENT W/PRESERVATIVES) 10/19/2019,10/20/2018,12/17/2017 TDAP (Adacel,Boostrix) 03/10/2023 TDAP Vaccine (Adacel) 05/20/2012 Zoster recombinant adjuvante d (Shingrix) 03/10/2023,12/06/2018 Family History Medical History Relation Comments Cancer Father liver Arthritis Mother Cerebrovascular Disease Mother Diabetes Type 2 Mother Gastrointestinal Disease Mother stomach problem Neurologic Disorder Sister MS Colon Cancer No family hx of Relation Status Comments Father (Age 73,74) Mother Sister Social History Tobacco Use Types Packs/Day Years Used Date Smoking Tobacco: Former Cigarettes Q uit: 02/17/1988 Smokeless Tobacco: Never Alcohol Use Standard Drinks/Week Comments No 0 (1 standard drink = 0.6 oz pur e alcohol) quit 1998 PHQ-2 Answer Date Recorded PHQ-2 Score 2 09/10/2023 Adolescent Education Answer Date Record ed Getting [...] Answer Date Recorded Do you have housing? (Mosesin g is defined as stable permanent housing and does not include staying outside in a car, in a tent, in an abandoned building, in an overnight retirement, or couch-surfing.) Yes 03/10/2023 Are you worried [...] getting things that you need? No 03/10/2023 Interpersonal Safety Answer Date Record ed Do you feel physically and e motionally safe where you currently live? Yes 09/10/2023 Within the past 12 months, h ave you been hit, slapped, kicked or otherwise physically hurt by someone? No 09/10/2023 Within the past 12 months, h ave you been humiliated or emotionally abused in other ways by your partner or ex-partner? 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 file Not on file Last Filed Vital Signs Vital Sign Reading Time Taken Comments Blood Pressure 104/69 09/10/2023 10:15 AM CDT Pulse 71 09/10/2023 10:15 AM CDT Temperature 36.6 C (97.9 F) 09/10/2023 10:15 AM CDT Respiratory Rate 16 09/10/2023 10:15 AM CDT Oxygen Saturation 96% 09/10/2023 10:15 AM CDT Inhaled Oxygen Concentration - - Weight 77.8 kg (171 lb 8 oz) 09/10/2023 10:15 AM CDT Height 172.7 cm (5' 8) 09/10/2023 10:15 AM CDT Body Mass Index 26.08 09/10/2023 10:15 AM CDT Plan of Treatment Health Maintenance Due Date Last Done Comments CT COLONOGRAPHY 1960 FIT 1960 FLEX SIG 1960 sDNA (Cologuard) 1960 LUNG CANCER SCREENING 2010 PNEUMOCOCCAL VACCINE 50+ YEARS (1 of 1 - PCV) 2010 YEARLY PREVENTIVE VISIT 03/10/2024 03/10/19 24, 05/29/2021, 03/22/2019, Additional history exists PHQ-9 03/12/2024 09/10/2023, 02/17, 06/18/2022, Additional history exists ADVANCE CARE PLANNING 03/22/2024 03/22/2019 ANNUAL REVIEW OF HM ORDERS 09/09/202409/09, 06/18/2022, 07/03/2020 COVID-19 VACCINE ( season) 2024 06/16/2020, 05/25/2020 INFLUENZA VACCINE (#1) 2024 , 10/19/2019, 10/19/2019, Additional history exists DIABETES SCREENING 09/09/2026 09/10/2023, 0 03/10/2023, 03/10/2023, Additional history exists LIPID 03/10/2028 03/10/2023, 02/0 05/2019, 07/25/2014, Additional history exists COLONOSCOPY 07/06/2031 07/05/2021, 06/17, 03/02/2018, Additional history exists COLORECTAL CANCER SCREENING 07/06/2031 DTAP/TDAP/TD VACCINE (3 - Td or Tdap) 03/10/2033 03/10/2023, 05/20/2012 RSV VACCINE (1 - 1-dose 75+ series) 04/26/2035 DEPRESSION ACTION PLAN Completed 8, 09/08/2017, 09/26/2016, Additional history exists HEPATITIS C SCREENING Completed 09/08/2017 HIV SCREENING Completed 09/08/2017 ZOSTER VACCINE Completed 03/10/2023, 12/06/2018 HPV VACCINE (No Doses Required) Completed MENINGITIS VACCINE Aged Out No longer eligible based on patient's age to complete this topic Procedures Procedure Name Priority Date/Time Associated Diagnosis Comments HEMOGLOBIN A1C Routine 09/10/2023 10:58 AM CDT Prediabetes LIPID REFLEX TO DIRECT LDL PANEL Routine 03/10/2023 8:37 AM MANAGER OF SELECTION AND ASSESSMENT Routine general medical examination at a [facility] care facility COLONOSCOPY Routine 07/05/2021 12:09 PM CDT HIV ANTIGEN ANTIBODY COMBO Routine 09/08/2017 8:40 AM CDT Screening for human immunodeficiency virus HEPATITIS C SCREEN REFLEX TO HCV RNA QUANT AND GENOTYPE Routine 09/08/2017 8:40 AM CDT Encounter for HCV screening test for low risk patient from Last 3 Months or Most Recently Relevant to Health Maintenance Results * (ABNORMAL) Hemoglobin A1c (09/10/2023 10:58 AM CDT) Hemoglobin A1C 5.7(H) 0.0 - 5.6 % 09/10/2023 11:03 AM CDT [facility] Comment: Normal <5.7% Prediabetes 5.7-6.4% Diabetes 6.5% or higher Note: Adopted from ADA consensus guidelines. Blood BLOOD SPECIMEN / Unknown Venipuncture / Unknown 09/10/2023 10:58 AM CDT 09/10/2023 10:58 AM CDT us Silke Rich MD LAB - BLOOD ORDERABLES Final Res ult LABORATORY [facility] [address] [facility] (no room number, 1st floor of clinic) [place] [address], [facility] * (ABNORMAL) Lipid panel reflex to direct LDL Fasting (03/10/2023 8:37 AM MANAGER OF SELECTION AND ASSESSMENT) Cholesterol 225(H) <200 mg/dL 03/10/2023 5:55 PM MANAGER OF SELECTION AND ASSESSMENT [facility] Triglycerides 116 <150 mg/dL 03/10/2023 5:55 PM MANAGER OF SELECTION AND ASSESSMENT [facility] Direct Measure HDL 56 >=40 mg/dL 03/10/2023 5:55 PM MANAGER OF SELECTION AND ASSESSMENT [facility] LDL Cholesterol Calculated 146(H) <=100 mg/dL 03/10/2023 5:55 PM MANAGER OF SELECTION AND ASSESSMENT [facility] Non HDL Cholesterol 169(H) <130 mg/dL 03/10/2023 5:55 PM MANAGER OF SELECTION AND ASSESSMENT [facility] Patient Fasting > 8hrs? Yes 03/10/2023 5:55 PM MANAGER OF SELECTION AND ASSESSMENT [facility] Blood BLOOD SPECIMEN / Unknown Venipuncture / Unknown 03/10/2023 8:37 AM MANAGER OF SELECTION AND ASSESSMENT 03/10/2023 8:37 AM MANAGER OF SELECTION AND ASSESSMENT Narrative [facility] - 03/10/2023 5:55 PM MANAGER OF SELECTION AND ASSESSMENT Cholesterol Desirable: <200 mg/dL Triglycerides Normal: Less than 150 mg/dL Borderline High: 150-199 mg/dL High: 200-499 mg/dL Very High: Greater than or equal to 500 mg/dL Direct Measure HDL Female: Greater than or equal to 50 mg/dL Male: Greater than or equal to 40 mg/dL LDL Cholesterol Desirable: <100mg/dL Above Desirable: 100-129 mg/dL Borderline High: 130-159 mg/dL High: 160-189 mg/dL Very High: >= 190 mg/dL Non HDL Cholesterol Desirable: 130 mg/dL Above Desirable: 130-159 mg/dL Borderline High: 160-189 mg/dL High: 190-219 mg/dL Very High: Greater than or equal to 220 mg/dL us Ralf Wheeler PA-C LAB - BLOOD ORDERABLES Roxy lincoln Result [facility] [address] [facility] [facility], [address] [address], [facility] [phone] * COLONOSCOPY (07/05/2021 12:09 PM CDT) COLONOSCOPY [facility] Patient Name: Adam Fu Procedure Date: 07/05/2021 12:09 PM Date of : 1960 Admit Type: Outpatient Age: 61 Gender: Male Attending MD: KATTY HOLLIS MD Total Sedation Time: 0_minutes continuous bedside 1:1 Instrument Name: 222 - Adult Colonoscope Procedure: Colonoscopy Indications: Hematochezia Providers: KATTY HOLLIS MD (Doctor) Referring MD: Medicines: None Complications: No immediate complications. Procedure: Pre-Anesthesia Assessment: - Prior to the procedure, a History and Physical was performed, and patient medications and allergies were reviewed. The patient is competent. The risks and benefits of the procedure and the sedation options and risks were discussed with the patient. All questions were answered and informed consent was obtained. Patient identification and proposed procedure were verified by the physician in the procedure room. Mental Status Examination: alert and oriented. Airway Examination: normal oropharyngeal airway and neck mobility. Respiratory Examination: clear to auscultation. CV Examination: normal. Prophylactic Antibiotics: The patient does not require prophylactic antibiotics. Prior Anticoagulants: The patient has taken no anticoagulant or antiplatelet agents. ASA Grade Assessment: II - A patient with mild systemic disease. After reviewing the risks and benefits, the patient was deemed in satisfactory condition to undergo the procedure. The anesthesia plan was to use moderate sedation / analgesia (conscious sedation). Immediately prior to administration of medications, the patient was re-assessed for adequacy to receive sedatives. The heart rate, respiratory rate, oxygen saturations, blood pressure, adequacy of pulmonary ventilation, and response to care were monitored throughout the procedure. The physical status of the patient was re-assessed after the procedure. After obtaining informed consent, the colonoscope was passed under direct vision. Throughout the procedure, the patient's blood pressure, pulse, and oxygen saturations were monitored continuously. The Olympus Adult Colonoscope, Model # CF-WM528H, [place]ora # 222, SN # [id number] was introduced through the anus and advanced to the cecum, identified by appendiceal orifice and ileocecal valve. The colonoscopy was performed without difficulty. The patient tolerated the procedure well. The quality of the bowel preparation was good. The ileocecal valve, appendiceal orifice, and rectum were photographed. Findings: The perianal and digital rectal examinations were normal. Non-bleeding external and internal hemorrhoids were found during retroflexion. The hemorrhoids were moderate and Grade II (internal hemorrhoids that prolapse but reduce spontaneously). The exam was otherwise without abnormality on direct and retroflexion views. Impression: - Non-bleeding external and internal hemorrhoids. - The examination was otherwise normal on direct and retroflexion views. - No specimens collected. Recommendation: - Use sugar-free Metamucil one teaspoon PO BID PRN. - Repeat colonoscopy in 10 years for screening purposes. Procedure Code(s): --- Professional --- 33746, Colonoscopy, flexible; diagnostic, including collection of specimen(s) by brushing or washing, when performed (separate procedure) Diagnosis Code(s): --- Professional --- K64.1, Second degree hemorrhoids K92.1, Melena (includes Hematochezia) CPT copyright 2020 [employer]. All rights reserved. The codes documented in this report are preliminary and upon piecer up review may be revised to meet current compliance requirements. Electronically signed by Katty Hollis MD __ KATTY HOLLIS MD 07/05/2021 12:55:20 PM I was physically present for the entire viewing portion of the exam. KATTY HOLLIS MD Number of Addenda: 0 Note Initiated On: 07/05/2021 12:09 PM Procedure Date: 07/05/2021 12:09:05 PM Scope Withdrawal Time: 0 hours 6 minutes 27 seconds Total Procedure Duration: 0 hours 11 minutes 23 seconds Estimated Blood Loss: Scope In: 12:34:13 PM Scope Out: 12:45:36 PM RADIOLOGY RESULTS 07/05/2021 12:0 9 PM CDT us Katty Hollis MD PROCEDURES Final Result Performing Organization Address [facility]/ZIP Co de Phone Number RADIOLOGY RESULTS * HIV Antigen Antibody Combo (09/08/2017 8:40 AM CDT) HIV Antigen Antibody Combo Nonreactive NR^Nonrea ctive 09/09/2017 10:47 AM CDT [facility] Comment:HIV-1 p24 Ag & HIV-1 /HIV-2 Ab Not Detected Blood specimen (specimen) 09/08/2017 8:40 AM CDT 09/08/2017 8:41 AM CDT Consuelo Alcantara MD LAB - BLOOD ORDERABLES Final Res ult [facility] [address] * Hepatitis C Screen Reflex to RNA FUTURE anytime (09/08/2017 8:40 AM CDT) Hepatitis C Antibody Nonreactive NR^Nonre active 09/09/2017 11:16 AM CDT [facility] Comment: Assay performance characteristics have not been established for newborns, infants, and children Blood specimen (specimen) 09/08/2017 8:40 AM CDT 09/08/2017 8:41 AM CDT us Consuelo Alcantara MD LAB - BLOOD ORDERABLES Final Res ult [address] from Last 3 Months or Most Recently Relevant to Health Maintenance Insurance [employer] [facility] COMMERCIAL Advance Directives For more information, please contact: [phone] * Full Code (Latest Code Status on File) Date Activated Date Inactivated Comments 08/30/2017 10:34 AM 06/17/2021 12:30 PM * Full Code Date Activated Date Inactivated Comments 08/29/2017 8:25 PM 08/30/2017 10:34 AM Care Teams X Ray Developing Machine Operator Relationship Specialty Start Date End Date Rafl Wheeler PA-C [address] [address] [address] PCP - General Family Medicine 02/23/23 Jose Luis Jarvis MD [address] [address] Dermatology 03/12/23 [place] [address] [address] [address] Assigned PCP 10/08/24
--- OUTSIDE RECORDS SUMMARY | 2024-11-10 15:46 | XMS_ITS | Encounter Summary ---
Author Organization [facility] Address [address] [place] [address] Care Team Providers Care Battery Assembler Dry Cell Name Role Phone Consuelo Alcantara MD Primary Care Provider Unavailab le Ralf Wheeler PA-C Primary Care Provider [phone] Ralf Wheeler PA-C Primary Care Provider [phone] Ralf Wheeler PA-C Unavailable [phone] Ralf Wheeler PA-C Unavailable [phone] Consuelo Alcantara MD Unavailable Unavailable Ralf Wheeler PA-C Unavailable [phone] Radha Talavera PA-C Unavailable [phone] Franci Campbell NP Unavailable Jose Luis Jarvis MD Unavailable Silke Rich MD Unavailable Encounter Details Date Type Department Care Team (Late st Contact Info) Description 05/30/2019 [facility] Medical Advice [address] [address] Emily Danielle Social History Tobacco [...] AM CDT 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 Gender Identity Male 06/16/2022 11:23 AM CDT [...] documented as of this encounter Care Teams Battery Assembler Dry Cell Relationship Specialty Start Date End Date Consuelo Alcantara MD PCP - General Family Practice 02/11/13 07/09/21 Ralf Wheeler PA-C [address] [address] [address] PCP - General Family Medicine 07/12/21 02/22/23 Ralf Wheeler PA-C [address] [address] [address] PCP - General Family Medicine 02/23/23 Ralf Wheeler PA-C [address] [address] [address] Family Medicine 02/23/23 03/11/23 Ralf Wheeler PA-C [address] [address] [address] Assigned PCP 10/03/18 03/24/20 Consuelo Alcantraa MD Assigned PCP 03/25/20 07/11/20 Ralf Wheeler PA-C [address] [address] [address] Assigned PCP 07/12/20 10/07/24 Radha Talavera PA-C [address] [place] [address] Physician Fish Hatchery Superintendent Dermatology 11/28/20 03/11/23 Franci Campbell NP [address] [address] Assigned Neuroscience Provider 07/13/21 01/02/23 Jose Luis Jarvis MD [address] [place] [address] Dermatology 03/12/23 [place] [address] [place] [address] Assigned PCP 10/08/24 documented as of this encounter
--- OUTSIDE RECORDS SUMMARY | 2024-11-10 15:46 | XMS_ITS | Encounter Summary ---
Author Organization [facility] Address [address] [place] [address] Care Team Providers Care Radiation Oncology Therapist Name Role Phone Ralf Wheeler PA-C Primary Care Provider [phone] Ralf Wheeler PA-C Unavailable [phone] Jose Luis Jarvis MD Unavailable [phone] Silke Rich MD Unavailable Encounter Details Date Type Department Care Team (Late st Contact Info) Description 05/17/2024 [facility] Medical Advice [address] [address] Sue Odell Social History Tobacco Use Types Packs/Day Years [...] in an abandoned building, in an overnight skilled nursing, or couch-surfing.) Yes 03/10/2023 Are you worried [...] AM CDT 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
--- NOTE | 2024-11-10 15:52 | CRLHL7_ITS ---
For Patients: As a result of the Cures Act, medical imaging exams and procedure reports are released immediately into your electronic medical record. You may view this report before your referring provider. If you have questions, please contact your health care provider. Indication: LACERATION Technique: Three views of the left 1st digit. Comparison: None. Findings: No acute displaced fracture or malalignment. Mild soft tissue swelling surrounding the 1st digit. Moderate degenerative changes at the 1st interphalangeal joint. No unexpected radiopaque foreign body. Impression: No acute displaced fracture or malalignment. No unexpected radiopaque foreign body. Dictated by Camron Rodriguez MD @ 11/10/2024 4:39:18 PM (Electronically Signed)
== END 2024-11-10 16:55 | disposition home or self-care (01) ==
PROVIDERS: Emergency Provider Emergency Medicine Emergency Medical Services
DX: S61.012A Laceration without foreign body of left thumb without damage to nail, initial encounter (principal); W29.3XXA Contact with powered garden and outdoor hand tools and machinery, initial encounter
CPT/HCPCS: 12001; 73140; 99283; 99284